=== PATIENT | female | born 2000 | race Caucasian/White ===

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

== ENCOUNTER 2023-01-09 13:15 | Emergency (ER) | payer BC, MEDICAID ==
[2023-01-09] MEDS ORDERED: Sodium Chloride 0.9% 10 ML Syringe FLUSH PRN (13:58)
[2023-01-09] MEDS ORDERED: Ondansetron 4 MG/2 ML SDV IVPUSH ONE (13:59)
[2023-01-09] MEDS ORDERED: HYDROmorphone 0.5 MG/0.5 ML Syringe IVPUSH ONE ×2 (13:59→15:36)
[2023-01-09] MEDS ORDERED: Alum Hydrox/Mag Hydrox/Simeth 30 ML, Lidocaine 2% 15 ML PO ONE ×2 (13:59)
[2023-01-09] MEDS ORDERED: Sodium Chloride 0.9% 1,000 ML IV ONE ×2 (14:00→15:07)
[2023-01-09 15:10] VITALS: BP 113/67; PULSE 66
== END 2023-01-09 16:56 | disposition home or self-care (01) ==
LOC: JD.ED 13:15
DX: K12.1 Other forms of stomatitis (principal); Z86.16 Personal history of COVID-19
CPT/HCPCS: 36415; 71045; 80053; 85025; 86140; 96361; 96374; 96375; 96376; 99283; A9270; J1170; J2405; J7030; 99284

== ENCOUNTER 2025-08-19 18:14 | Emergency (ER) | payer MEDICAID ==
[2025-08-19 19:31] LABS: APPEARANCE,URINE CLEAR (Clear); GLUCOSE,URINE NEGATIVE (Negative); OCCULT BLOOD,URINE NEGATIVE (Negative)
[2025-08-19] MEDS: Magnesium Citrate Solution 296 ML Bottle PO ONE (21:20)
[2025-08-19 21:40] VITALS: BP 113/73; PULSE 65
== END 2025-08-19 21:35 | disposition home or self-care (01) ==
LOC: JD.ED 18:14
DX: K29.70 Gastritis, unspecified, without bleeding (principal); K59.01 Slow transit constipation; K20.0 Eosinophilic esophagitis; K21.9 Gastro-esophageal reflux disease without esophagitis; Z79.899 Other long term (current) drug therapy; Z86.16 Personal history of COVID-19
CPT/HCPCS: 36415; 76705; 81003; 82977; 96360; 96361; 99284; A9270; J7030